=== PATIENT | female | born 1965 ===

== ENCOUNTER 2016-10-21 09:47 | Emergency (ER) | payer BC ==
[2016-10-21 09:58] VITALS: BMI 26.0
[2016-10-21 09:59] VITALS: BP 127/70; RESP 16; TEMP 97; O2SAT 100
--- NOTE | 2016-10-21 10:36 | ED PDOC ---
HPI: Back Time Seen by Provider: 10/21/16 10:17 Chief Complaint (Nursing): Back Pain History Per: Patient History/Exam Limitations: no limitations Onset/Duration Of Symptoms: Days Current Symptoms Are (Timing): Still Present Quality Of Discomfort: Dull, Aching, "Pain" Severity: Moderate Previous Symptoms: None Associated Symptoms: None Exacerbating Factor(s): Turning, Movement Additional Complaint(s): 51 year old female with no PMH presents to ED with complaints of upper back pain starting yesterday. She reports pain is dull aching and started radiating to the left side, but no radiation to chest. She states pain is worse with any movement, twisting or bending. She took Tylenol without any relief. She states pain worsened after having mammogram yesterday. Denies breast pain or SOB. - Risk Factors AAA Risk Factors: Pos: Older Than 49 Years Of Age Past Medical History Reviewed: Historical Data, Nursing Documentation, Vital Signs Vital Signs: Last Vital Signs Temp 97.0 F L 10/21/16 09:58 Pulse 77 10/21/16 09:58 Resp 16 10/21/16 09:58 BP 127/70 10/21/16 09:58 Pulse Ox 100 10/21/16 09:58 - Medical History PMH: No Chronic Diseases - Surgical History Surgical History: Cholecystectomy - Family History Family History: States: Unknown Family Hx - Living Arrangements Living Arrangements: With Family - Social History Current smoker - smoking cessation education provided: No Alcohol: Occasional Drugs: Denies - Home Medications Home Medications: Ambulatory Orders Medication Instructions Recorded Cyclobenzaprine [Cyclobenzaprine 10 mg PO TID #21 tab 10/21/16 HCl] Ibuprofen [Motrin] 600 mg PO Q8 #30 tab 10/21/16 - Allergies Allergies/Adverse Reactions: Allergies Allergy/AdvReac Type Severity Reaction Status Date / Time No Known Allergies Allergy Verified 10/21/16 10:05 Review of Systems Constitutional: Negative for: Fever, Weakness, Malaise Eyes: Negative for: Pain, Vision Change Cardiovascular: Negative for: Chest Pain, Palpitations Respiratory: Negative for: Cough, Shortness of Breath, Hemoptysis Gastrointestinal: Negative for: Vomiting, Abdominal Pain Genitourinary Female: Negative for: Dysuria Musculoskeletal: Positive for: Back Pain. Negative for: Shoulder Pain Neurological: Negative for: Weakness, Numbness, Headache, Dizziness Physical Exam - Reviewed Nursing Documentation Reviewed: Yes Vital Signs Reviewed: Yes - Physical Exam Appears: Positive for: Non-toxic, Uncomfortable Head Exam: Positive for: ATRAUMATIC, NORMAL INSPECTION, NORMOCEPHALIC Skin: Positive for: Warm, Dry. Negative for: Rash Eye Exam: Positive for: Normal appearance Neck: Positive for: Normal, Painless ROM Cardiovascular/Chest: Positive for: Regular Rate, Rhythm, Chest Non Tender. Negative for: Murmur Respiratory: Positive for: Normal Breath Sounds. Negative for: Wheezing, Respiratory Distress Gastrointestinal/Abdominal: Positive for: Soft. Negative for: Tenderness, Distended, Guarding Back: Positive for: Normal Inspection, Decreased ROM (secondary to pain), Other (tenderness to upper back, worse on left side). Negative for: Vertebral Tenderness Extremity: Positive for: Normal ROM. Negative for: Tenderness, Pedal Edema, Deformity, Swelling Neurologic/Psych: Positive for: Alert, Oriented - ECG ECG: Positive for: Interpreted By Me, Viewed By Me (and Dr Roberts) ECG Rhythm: Positive for: Normal QRS, Normal ST Segment, Sinus Rhythm Rate: 79 (bpm) O2 Sat by Pulse Oximetry: 100 - Radiology X-Ray: Interpreted by Me, Viewed By Me Medical Decision Making Medical Decision Makin51 year old female with upper back pain since yesterday. Pain is reproducibly tender. EKG shows NS at 79 bpm with normal axis and no ST changes. CXR shows No evidence of acute pulmonary disease. Diffuse osteopenia. Patient was treated with Tylenol Motrin and Valium. On reevaluation patient reports pain is improving. She denies any chest pain or SOB, pain likely musculoskeletal. Patient feels comfortable going home and will be discharged with Rx. Patient given follow up instructions. Instructed to return to ER if symptoms worsen or new symptoms arise. Disposition - Clinical Impression Clinical Impression: Upper back strain - Patient ED Disposition Is Patient to be Admitted: No Counseled Patient/Family Regarding: Diagnosis, Need For Followup, Rx Given - Disposition Referrals: [facility] [Outside] Disposition: Routine/Home Disposition Time: 12:20 Condition: STABLE Additional Instructions: El EKG y la radiografa james normales Por favor tome los medicamentos necesarios para el dolor diario Seguimiento en la clnica para ms atencin Prescriptions: Cyclobenzaprine [Cyclobenzaprine HCl] 10 mg PO TID #21 tab Ibuprofen [Motrin] 600 mg PO Q8 #30 tab Instructions: Thoracic Back Strain (ED) Forms: [employer] (Z[place]ian) Print Language: IRISH - KILO Present On Arrival: None
[2016-10-21 10:47] VITALS: PULSE 79
--- NOTE | 2016-10-21 11:41 | RAD ---
HISTORY: left upper back pain COMPARISON: No prior. TECHNIQUE: Chest PA and lateral FINDINGS: LUNGS: No active pulmonary disease. PLEURA: No significant pleural effusion identified. No pneumothorax apparent. CARDIOVASCULAR: Normal. OSSEOUS STRUCTURES: DIFFUSE OSTEOPENIA. VISUALIZED UPPER ABDOMEN: Normal. OTHER FINDINGS: None. IMPRESSION: No evidence of acute pulmonary disease. Diffuse osteopenia.
--- NOTE | 2016-10-23 11:41 | CARD ---
APPROVED REPORT EKG Measurement Heart [id number] <Conclusion> Normal sinus rhythm Normal ECG
== END 2016-10-21 12:31 | disposition home or self-care (01) ==
LOC: H.ER 09:47
DX: M54.9 Dorsalgia, unspecified (principal)